=== PATIENT | female | born 1985 | race African-American/Black ===

== ENCOUNTER 2021-01-14 08:00 | Inpatient (IN) | payer OTHER ==
[2021-01-14] MEDS ORDERED: ELECTROLYTE-148 SOLN 1,000 ML IV ONE (08:15)
[2021-01-14] MEDS ORDERED: CITRIC ACID/SODIUM CITRATE 30 ML UNIT-DOSE CUP PO ONE (08:15)
[2021-01-14] MEDS ORDERED: ELECTROLYTE-148 SOLN 1,000 ML IV SCH (08:15)
[2021-01-14 09:18] VITALS: BMI 34.3
[2021-01-14] MEDS ORDERED: ePHEDrine SULFATE 50 MG/1 ML AMPULE ONE (09:31)
[2021-01-14] MEDS ORDERED: PHENYLEPHRINE HCL 10 MG/1 ML SINGLE DOSE VIAL ONE (09:31)
[2021-01-14] MEDS ORDERED: SUCCINYLCHOLINE CHLORIDE 200 MG/10 ML SYRINGE ONE (09:32)
[2021-01-14] MEDS ORDERED: PROPOFOL 20 ML ONE ×2 (09:32)
[2021-01-14] MEDS ORDERED: OXYTOCIN 10 UNITS/ML VIAL ONE ×2 (09:36→11:07)
[2021-01-14] MEDS ORDERED: ceFAZolin SODIUM 1 GM VIAL ONE ×2 (09:36→11:07)
[2021-01-14] MEDS ORDERED: ONDANSETRON 4 MG/2 ML VIAL ONE ×2 (09:36→11:07)
[2021-01-14 11:27] LABS: CORD BASE EXCESS -5.8 mmol/L (0-2); CORD HCO3 22.7 mmHg (20-29); CORD PCO2 55.9 mmHg (30-78); CORD pH 7.227 (7.14-7.44)
[2021-01-14] MEDS ORDERED: KETAMINE HCL 500 MG/10 ML VIAL ONE (11:32)
[2021-01-14 11:35] LABS: CORD BASE EXCESS -6.2 mmol/L (0-2); CORD HCO3 22.1 mmHg (20-29); CORD PCO2 53.5 mmHg (30-78); CORD pH 7.233 (7.14-7.44)
[2021-01-14] MEDS ORDERED: SENNOSIDES/DOCUSATE COMBO (SENNA PLUS) TABLET (UD) PO PRN (12:28)
[2021-01-14] MEDS ORDERED: ONDANSETRON 4 MG/2 ML VIAL IVPB PRN (12:28)
[2021-01-14] MEDS ORDERED: OXYTOCIN 20 UNITS in 0.9% NS 20 UNIT/1,000 ML INFUS.BAG IV SCH (12:30)
[2021-01-14] MEDS ORDERED: ONDANSETRON 4 MG/2 ML VIAL IVPUSH PRN (12:31)
[2021-01-14] MEDS ORDERED: ACETAMINOPHEN 500 MG TABLET (FP) PO PRN (12:31)
[2021-01-14] MEDS: ACETAMINOPHEN 1000 MG/100 ML VIAL (NON FORMULARY) IVPB SCH ×3 (13:06→23:51)
[2021-01-14] MEDS: IBUPROFEN 800 MG/8 ML IJ IVPB SCH (17:57)
[2021-01-14] MEDS ORDERED: IBUPROFEN 800 MG/8 ML IJ IVPB SCH (18:30)
[2021-01-14] MEDS ORDERED: CEFAZOLIN 1 GM/D5W 50 ML IVPB SCH (19:00)
[2021-01-15] MEDS: IBUPROFEN 800 MG/8 ML IJ IVPB SCH ×3 (03:15→19:03)
[2021-01-15] MEDS: ACETAMINOPHEN 1000 MG/100 ML VIAL (NON FORMULARY) IVPB SCH ×2 (05:53→13:17)
[2021-01-15 10:25] LABS: BASO % 0.1 % (0-2.0); EOS % 0.3 % (0-4.5); HEMATOCRIT 28.4 % (32.4-45.2); HEMOGLOBIN 9.8 GM/dL (10.7-15.3); MCH 33.6 pg (25.7-33.7); MCHC 34.6 g/dl (32.0-36.0); MEAN CELL VOLUME 97.1 fl (80-96); MEAN PLT VOLUME 8.9 fl (7.5-11.1); MONO % 4.2 % (3.8-10.2); NEUT % 87.4 % (42.8-82.8); PLATELET COUNT 110 K/MM3 (134-434); RBC 2.92 M/mm3 (3.60-5.2); RDW 15.1 % (11.6-15.6); WHITE BLOOD COUNT 8.9 K/mm3 (4.0-10.0)
[2021-01-15] MEDS: PRENATAL VITAMINS W/ FOLIC ACID TABLET (FP) PO SCH (10:32)
[2021-01-15] MEDS: oxyCODONE HCL 5 MG TABLET PO PRN ×2 (10:35→22:21)
[2021-01-15] MEDS: SIMETHICONE 80 MG TAB.CHEW (FP) PO PRN ×2 (10:36→18:11)
[2021-01-15 11:39] LABS: POTASSIUM 4.1 mmol/L (3.5-5.1)
[2021-01-15 11:55] LABS: BLOOD UREA NITROGEN 6.1 mg/dL (7-18)
[2021-01-15 11:57] LABS: ALBUMIN 2.3 g/dl (3.4-5.0); CALCIUM 8.5 mg/dL (8.5-10.1)
[2021-01-15 12:01] LABS: CREATININE 0.7 mg/dL (0.55-1.3)
[2021-01-15 12:02] LABS: BILIRUBIN,TOTAL 0.7 mg/dL (0.2-1); TOT PROT 5.5 g/dl (6.4-8.2)
[2021-01-15] MEDS ORDERED: BISACODYL 10 MG SUPP.RECT RC PRN (12:28)
[2021-01-15] MEDS ORDERED: ACETAMINOPHEN 500 MG TABLET (FP) PO PRN (12:59)
[2021-01-15] MEDS: ACETAMINOPHEN 500 MG TABLET (FP) PO PRN (18:11)
[2021-01-16] MEDS: IBUPROFEN 600 MG TABLET (FP) PO PRN ×3 (04:01→16:56)
[2021-01-16] MEDS: SIMETHICONE 80 MG TAB.CHEW (FP) PO PRN ×3 (04:01→16:58)
[2021-01-16] MEDS: oxyCODONE HCL 5 MG TABLET PO PRN ×2 (04:02→08:43)
[2021-01-16] MEDS: PRENATAL VITAMINS W/ FOLIC ACID TABLET (FP) PO SCH (11:21)
[2021-01-16] MEDS: ACETAMINOPHEN 500 MG TABLET (FP) PO PRN (16:57)
[2021-01-17] MEDS: IBUPROFEN 600 MG TABLET (FP) PO PRN ×3 (05:27→21:48)
[2021-01-17] MEDS: SIMETHICONE 80 MG TAB.CHEW (FP) PO PRN ×2 (05:28→10:32)
[2021-01-17] MEDS: oxyCODONE HCL 5 MG TABLET PO PRN (05:28)
[2021-01-17] MEDS: ACETAMINOPHEN 500 MG TABLET (FP) PO PRN ×2 (10:30→21:48)
[2021-01-17] MEDS: PRENATAL VITAMINS W/ FOLIC ACID TABLET (FP) PO SCH (10:30)
[2021-01-18] MEDS: SIMETHICONE 80 MG TAB.CHEW (FP) PO PRN (09:09)
[2021-01-18] MEDS: PRENATAL VITAMINS W/ FOLIC ACID TABLET (FP) PO SCH (09:09)
[2021-01-18] MEDS: IBUPROFEN 600 MG TABLET (FP) PO PRN (09:10)
[2021-01-18 10:21] VITALS: BP 108/69; PULSE 88; TEMP 98.6
== END 2021-01-18 13:20 | disposition home or self-care (01) | DRG 788 ==
LOC: JLDR 08:00 → J3W 13:30
PROVIDERS: ADMIT Family Medicine; ATTEND Family Medicine
PROC: 10D00Z1 Extraction of Products of Conception, Low, Open Approach (ICD-10-PCS; principal; 2021-01-14)
PROC: 0DNW0ZZ Release Peritoneum, Open Approach (ICD-10-PCS; 2021-01-14)
DX: O34.211 Maternal care for low transverse scar from previous cesarean delivery (principal); O99.892 Other specified diseases and conditions complicating childbirth; N73.6 Female pelvic peritoneal adhesions (postinfective); Z3A.39 39 weeks gestation of pregnancy; Z37.0 Single live birth
CPT/HCPCS: 36415; 36600; 80053; 82803; 85025; J0131